=== PATIENT | male | born 1985 | race Caucasian/White ===

== ENCOUNTER 2019-06-10 07:58 | Inpatient (IN) | payer MEDICAID ==
[~2019-06-10] VITALS: Ht 177.8 cm; Wt 96.7 kg
[2019-06-10] VITALS (14 sets, daily range): BP systolic 106–131; BP diastolic 60–93; Ht 177.8 cm; Wt 96.7 kg
[2019-06-10] MEDS ORDERED: PAXIL20 MG PO (08:03)
[2019-06-10] MEDS ORDERED: OMEPRAZOLE20 M1 PO (08:36)
[2019-06-10] MEDS ORDERED: FOLBIC RF TABL1 EACH PO (08:37)
[2019-06-10] MEDS ORDERED: BACLOFEN10 MG PO (08:37)
[2019-06-10] MEDS ORDERED: FOLIC ACID1 MG PO (08:37)
[2019-06-10] MEDS ORDERED: ZOFRAN4 MG PO (08:38)
[2019-06-10] MEDS ORDERED: VISTARIL25 MG PO (08:39)
[2019-06-10] MEDS ORDERED: CATAPRES0.1 MG PO (08:39)
[2019-06-10 08:40] LABS: BASOPHILS 0.1 % (0-2); EOSINOPHILS 0.1 % (0-7); HEMATOCRIT 37.9 % (42.0-54.0); HEMOGLOBIN 13.7 g/dL (13.5-17.5); IMMATURE GRANULOCYTES 0.4 % (0-5); LYMPHOCYTES 9.7 % (15-50); MCH 26.9 pg (26.0-34.0); MCHC 36.1 g/dL (31.0-37.0); MCV 74.3 fL (80.0-100.0); MEAN PLATELET VOLUME 9.6 fL (7.4-10.4); MONOCYTES 6.1 % (2-11); NEUTROPHILS 83.6 % (40-80); RDW 14.7 % (11.5-14.5); WBC 16.4 10x3/uL (4.8-10.8)
[2019-06-10] MEDS ORDERED: LIBRIUM25 MG PO (08:41)
[2019-06-10 08:43] LABS: PLATELET COUNT 297 10x3/uL (130-400)
[2019-06-10 08:53] LABS: ALBUMIN 3.8 g/dL (3.4-5.0); BILIRUBIN - TOTAL 0.69 mg/dL (0.2-1.3); CALCIUM 7.4 mg/dL (8.5-10.1); CARBON DIOXIDE 30.6 mmol/L (21.0-32.0); CREATININE - SERUM 1.3 mg/dL (0.6-1.3); POTASSIUM - SERUM 3.6 mmol/L (3.5-5.1); PROTEIN - SERUM 7.8 g/dL (6.4-8.2)
[2019-06-10 08:56] LABS: MAGNESIUM - SERUM 1.2 mg/dL (1.8-2.4)
[2019-06-10 09:01] LABS: APPEARANCE CLEAR (CLEAR); BILIRUBIN NEGATIVE (NEGATIVE); COLOR YELLOW (YELLOW); GLUCOSE NEGATIVE (NEGATIVE); KETONE NEGATIVE (NEGATIVE); NITRITE NEGATIVE (NEGATIVE); PROTEIN NEGATIVE (NEGATIVE); SPECIFIC GRAVITY 1.015 (1.005-1.020); UROBILINOGEN NORMAL (NORMAL)
[2019-06-10 09:08] LABS: UDS - AMPHET NEGATIVE QUAL (NEGATIVE); UDS - BARB NEGATIVE QUAL (NEGATIVE); UDS - BENZO POSITIVE QUAL (NEGATIVE); UDS - COCAINE NEGATIVE QUAL (NEGATIVE); UDS - OPIATE NEGATIVE QUAL (NEGATIVE); UDS - PCP NEGATIVE QUAL (NEGATIVE); UDS - THC NEGATIVE QUAL (NEGATIVE)
--- NOTE | 2019-06-10 09:45 | NUR ---
PT ARRIVED IN THE UNIT. PT A&O X4. PT SOMEWHAT DROWSEY. PT HOOKED TO MONITORS. SINUSTACH NOTED. ON RA. IV NOTED TO LEFT FA SL. PT NOTED TO HAVE A VERY STEADY GAIT. NO TREMORS NOTED AT THIS TIME. WHENEVER TRYING TO OBTAIN HISTORY, PT KEPT NODDING OFF AND START SNORING. WHENEVER HE WOKE UP "THAT ATIVAN THEY GAVE ME IN THE ER IS STARTING TO REALLY WORK. I HAVNT BEEN TO SLEEP IN OVER 2 DAYS." PT REQUEST WATER AND IT WAS PROVIDED. NO DYSPAGIA NOTED. CALL LIGHT IN REACH. WILL CONT POC.
--- NOTE | 2019-06-10 10:46 | NUR ---
PT C/O RESTLESSNESS AND NAUSEA. PRN ATIVAN AND ZOFRAN GIVEN.
--- NOTE | 2019-06-10 12:18 | NUR ---
PT RESTING WITH HIS EYES CLOSED. VSS. NO TREMORS NOTED. PT WOKEN EASILY. PO MEDS GIVEN. LUNCH TRAY PROVIDED FOR THE PT. CALL LIGHT IN REACH. WILL CONT POC.
--- NOTE | 2019-06-10 13:00 | NUR ---
PATIENT IS RESTING. NO NEEDS AT THIS TIME. NO DISTRESS NOTED. BED LOW AND LOCKED. CALL LIGHT WITHIN REACH. WILL CONTINUE TO MONITOR.
--- NOTE | 2019-06-10 15:11 | NUR ---
PATIENT ALERTS UPON VOICE. GIVEN A GLASS OF WATER. BLANKET PROVIDED. NO OTHER NEEDS. VSS. WILL CONTINUE TO MONITOR. CALL LIGHT WITHIN REACH.
--- NOTE | 2019-06-10 17:14 | NUR ---
PATIENT ALERT AND DRINKING CHICK BROTH. PATIENT COMPLAINS OF THROAT PAIN. FEELS LIKE MUCOUS IS STUCK IN THE BACK OF HIS THROAT. SUCTION PROVIDED AT BEDSIDE. ENCOURAGED TO COUGH. WILL CONTINUE TO MONITOR.
--- NOTE | 2019-06-10 19:00 | NUR ---
PT SLEEPING WITHOUT DISTRESS, WILL CONT TO MONITOR
--- NOTE | 2019-06-10 21:00 | NUR ---
PT AWAKE, C/O SOMETHING IN THROAT, EXAMINED, HAS SWOLLEN UVULA R/T SNORING WHILE LAYING ON BACK, INSTRUCTED TO TRY SLEEPING ON SIDE TO AVOID SNORING
--- NOTE | 2019-06-10 23:00 | NUR ---
RESTING QUIETLY, LAYING ON LEFT SIDE
[2019-06-11] VITALS (12 sets, daily range): BP systolic 101–123; BP diastolic 57–78
--- NOTE | 2019-06-11 01:00 | NUR ---
AROUSES EASILY, NO C/O @ THIS TIME, VITALS STABLE
--- NOTE | 2019-06-11 03:00 | NUR ---
PT SLEEPING, AROUSES EASILY, VITALS STABLE, NO C/O
[2019-06-11 04:16] LABS: BASOPHILS 0.3 % (0-2); EOSINOPHILS 0.5 % (0-7); HEMATOCRIT 37.4 % (42.0-54.0); HEMOGLOBIN 12.3 g/dL (13.5-17.5); IMMATURE GRANULOCYTES 0.3 % (0-5); LYMPHOCYTES 20.1 % (15-50); MCH 24.9 pg (26.0-34.0); MCHC 32.9 g/dL (31.0-37.0); MCV 75.9 fL (80.0-100.0); MEAN PLATELET VOLUME 9.9 fL (7.4-10.4); MONOCYTES 6.3 % (2-11); NEUTROPHILS 72.5 % (40-80); PLATELET COUNT 234 10x3/uL (130-400); RBC 4.93 10x6/uL (4.20-6.10); RDW 14.9 % (11.5-14.5); WBC 7.9 10x3/uL (4.8-10.8)
--- NOTE | 2019-06-11 04:25 | NUR ---
PT SLEEPING ON LEFT SIDE, IV PULLED OUT WHILE SLEEPING, CATH INTACT
[2019-06-11 04:30] LABS: ALBUMIN 3.1 g/dL (3.4-5.0); ANION GAP 10.5 mmol/L (8-16); BILIRUBIN - TOTAL 0.99 mg/dL (0.2-1.3); CALCIUM 7.3 mg/dL (8.5-10.1); CREATININE - SERUM 1.3 mg/dL (0.6-1.3); POTASSIUM - SERUM 3.5 mmol/L (3.5-5.1); PROTEIN - SERUM 6.7 g/dL (6.4-8.2)
--- NOTE | 2019-06-11 05:54 | NUR ---
AROUSES EASILY, NO CHANGES NOTED, VITALS STABLE
--- NOTE | 2019-06-11 07:00 | NUR ---
PT REPORT RECEIVED FROM DIE STORAGE CLERK NURSE. PT RESTING IN BED. VSS. WILL CONTINUE TO MONITOR
--- NOTE | 2019-06-11 09:00 | NUR ---
PT IN BED RESTING. VSS. WILL CONTINUE TO MONITOR
--- NOTE | 2019-06-11 11:00 | NUR ---
patient resting. no distress noted. vss. no changes. call light within reach. bed low and locked.
--- NOTE | 2019-06-11 13:21 | NUR ---
patient sleeping. no distress noted. denies needs at this time. will continue to monitor. vss.
--- NOTE | 2019-06-11 14:19 | MORECARE ---
CASE MANAGEMENT DISCHARGE SUMMARY PATIENT: ABRAHAM ANTHONY UNIT: [id number] ADM DATE: 06/10/19 AGE: 33 : 81 SEX: M ROOM/BED: D.2301 AUTHOR: CLA JONES PHYSICIAN: REFERRING PHYSICIAN: TIFFANIE BONNER MD DATE OF SERVICE: 06/11/19 Discharge Plan Patient Name: ABRAHAM ANTHONY [facility] [facility] 1985 Planned Disposition: Rehab Fac/Unit w Plan Readm Anticipated Discharge Date: Discharge Date: Expected LOS: Initial Reviewer: [email or web address] Initial Review Date: 06/10/2019 Generated: 06/11/19 3:19 pm DCPIA - Discharge Planning Initial Assessment Updated by [email or web address]: Salome Aquino on 06/11/19 2:16 pm * Is the patient Alert and Oriented? Yes * Preadmission Environment Other * Other Environment Alcohol treatment facility * Facility Name [facility] * ADLs Independent * List name and contact numbers for known caregivers / representatives who currently or will assist patient after discharge: [facility] [phone] * Verbal permission to speak to the caregivers and representatives has been obtained from the patient. Yes * Additional services required to return to the preadmission environment? No * Can the patient safely return to the preadmission environment? Yes * Has this patient been hospitalized within the prior 30 days at any hospital? No Patient Name: ABRAHAM ANTHONY Page 42873 at 1419 All edits/amendments must be made on the electronic document DICTATION DATE: 06/11/19 1419 AUTO BODY REPAIR TECHNICIAN: XI 06/11/19 1419 RPT#: [id number] DC DATE: STATUS: ADM IN [facility] [address] [place] [address] END OF REPORT
--- NOTE | 2019-06-11 14:38 | MORECARE ---
CASE MANAGEMENT DISCHARGE SUMMARY PATIENT: ABRAHAM ANTHONY UNIT: [id number] ADM DATE: 06/10/19 AGE: 33 : 81 SEX: M ROOM/BED: D.2301 AUTHOR: CAL JONES PHYSICIAN: REFERRING PHYSICIAN: TIFFANIE BONNER MD DATE OF SERVICE: 06/11/19 Discharge Plan Patient Name: ABRAHAM ANTHONY Facility: [facility]:[place] : 1985 Planned Disposition: Rehab Fac/Unit w Plan Readm Anticipated Discharge Date: Discharge Date: Expected LOS: Initial Reviewer: [email or web address] Initial Review Date: 06/10/2019 Generated: 06/11/19 3:37 pm Comments DCP- Discharge Planning Updated by [email or web address]: Salome Aquino on 06/11/19 1:[address] Patient Name: ABRAHAM ANTHONY Admission Status: ER Accout number: [id number] Admission Date: 06-10-2019 : 1985 Admission Diagnosis: Attending: HA, Current LOS: 1 Anticipated DC Date: Planned Disposition: Rehab Fac/Unit w Plan Readm Primary Insurance: MEDICAID [place] PENDING Discharge Planning Comments: CM met with patient at bedside after explaining CM role and obtaining verbal consent. Patient lives at his home where he is independent with his care. Patient had admitted himself into [facility] for Alcohol Rehab prior to admission and plans to return there for treatment upon discharge. Patient feels this would be a safe discharge. Patient denies any discharge needs at this time. CM will continue to follow and assist as needed with discharge planning / needs. Belt Tender: Salome Aquino DCPIA - Discharge Planning Initial Assessment Updated by [email or web address]: Salome Aquino on 06/11/19 2:16 pm * Is the patient Alert and Oriented? Yes * Preadmission Environment Other * Other Environment Alcohol treatment facility * Facility Name [facility] * ADLs Independent * List name and contact numbers for known caregivers / representatives who currently or will assist patient after discharge: VALENTIN ANTHONY- [facility]- [phone] * Verbal permission to speak to the caregivers and representatives has been obtained from the patient. Yes * Additional services required to return to the preadmission environment? No * Can the patient safely return to the preadmission environment? Yes * Has this patient been hospitalized within the prior 30 days at any hospital? No Last DP export: 06/11/19 1:19 p Patient Name: ABRAHAM ANTHONY Page [id number] at 1438 All edits/amendments must be made on the electronic document DICTATION DATE: 06/11/191436 ONLINE BANKING SPECIALIST: XI 06/11/191436 RPT#: [id number] DC DATE: STATUS: ADM IN [facility] [address] [place] [address] END OF REPORT
--- NOTE | 2019-06-11 15:00 | NUR ---
PT RESTING IN BED. NO COMPLAINTS AT THIS TIME. CURRENTLY AWAITING BANANA BAG FROM PHARMACY
--- NOTE | 2019-06-11 17:05 | NUR ---
PT AWAITING TRANSFER. STILL WAITING ON BANANA BAG FROM PHARMACY. WILL CONTINUE TO MONITOR. VSS
--- NOTE | 2019-06-11 17:19 | NUR ---
SELWYN QUIJANO HUNG. BAG SAYS TO RUN FLUID IN AT 1000MLS/HR HOWEVER PHARMACY WAS CALLED AND INSTRUCTED TO RUN AT 125MLS/HR.
[2019-06-12] VITALS: BP 104/42
[2019-06-12 04:00] VITALS: BP 105/63
--- NOTE | 2019-06-12 07:32 | NUR ---
PT SLEEPING UPON ENTERING, AWOKE WHILE IN ROOM. ALERT AND ORIENTED X3, HAS IV TO LEFT FOREARM. DENIES ANY NEEDS AT THIS TIME. WILL CTM.
--- NOTE | 2019-06-12 09:18 | NUR ---
ADMINISTERED MEDICATION AT THIS TIME, NO TROUBLE SWALLOWING. VITALS ASSESSED, ALL STABLE. DENIES OTHER NEEDS. LEFT PT SITTING UP RIGHT IN BED EATING BREAKFAST. WILL CTM.
--- NOTE | 2019-06-12 11:04 | MORECARE ---
CASE MANAGEMENT DISCHARGE SUMMARY PATIENT: ABRAHAM ANTHONY UNIT: [id number] ADM DATE: 06/10/19 AGE: 33 : 81 SEX: M ROOM/BED: D.1212 AUTHOR: CAL JONES PHYSICIAN: REFERRING PHYSICIAN: TIFFANIE BONNER MD DATE OF SERVICE: 06/12/19 Discharge Plan Patient Name: ABRAHAM ANTHONY Facility: [facility]:[place] : 1985 Planned Disposition: Rehab Fac/Unit w Plan Readm Anticipated Discharge Date: 06/12/19 Discharge Date: Expected LOS: 2 Initial Reviewer: [email or web address] Initial Review Date: 06/10/2019 Generated: 06/12/19 12:04 pm Comments DCP- Discharge Planning Updated by [email or web address]: Salome Aquino on 06/11/19 1:[address] Patient Name: ABRAHAM ANTHONY Admission Status: ER Accout number: [id number] Admission Date: 06-10-2019 : 1985 Admission Diagnosis: Attending: HA, Current LOS: 1 Anticipated DC Date: Planned Disposition: Rehab Fac/Unit w Plan Readm Primary Insurance: MEDICAID [place] PENDING Discharge Planning Comments: CM met with patient at bedside after explaining CM role and obtaining verbal consent. Patient lives at his home where he is independent with his care. Patient had admitted himself into [facility] for Alcohol Rehab prior to admission and plans to return there for treatment upon discharge. Patient feels this would be a safe discharge. Patient denies any discharge needs at this time. CM will continue to follow and assist as needed with discharge planning / needs. Chemist Organic: Salome Aquino DCPIA - Discharge Planning Initial Assessment Updated by [email or web address]: Salome Aquino on 06/11/19 2:16 pm * Is the patient Alert and Oriented? Yes * Preadmission Environment Other * Other Environment [facility] treatment facility [facility] * ADLs Independent * List name and contact numbers for known caregivers / representatives who currently or will assist patient after discharge: VALENTIN ANTHONY- [facility]- [phone] * Verbal permission to speak to the caregivers and representatives has been obtained from the patient. Yes * Additional services required to return to the preadmission environment? No * Can the patient safely return to the preadmission environment? Yes * Has this patient been hospitalized within the prior 30 days at any hospital? No Last DP export: 06/11/19 1:38 p Patient Name: ABRAHAM ANTHONY Page [id number] at 1104 All edits/amendments must be made on the electronic document DICTATION DATE: 06/12/191103 MICROSOFT BI CONSULTANT: XI 06/12/19 110 RPT#: [id number] DC DATE: STATUS: ADM IN [facility] [address] [place] [address] END OF REPORT
--- NOTE | 2019-06-12 11:12 | MORECARE ---
CASE MANAGEMENT DISCHARGE SUMMARY PATIENT: ABRAHAM ANTHONY UNIT: [id number] ADM DATE: 06/10/19 AGE: 33 : 81 SEX: M ROOM/BED: D.1212 AUTHOR: CAL JONES PHYSICIAN: REFERRING PHYSICIAN: TIFFANIE BONNER MD DATE OF SERVICE: 06/12/19 Discharge Plan Patient Name: ABRAHAM ANTHONY Facility: [facility]:[place] : 1985 Planned Disposition: Rehab Fac/Unit w Plan Readm Anticipated Discharge Date: 06/12/19 Discharge Date: Expected LOS: 2 Initial Reviewer: [email or web address] Initial Review Date: 06/10/2019 Generated: 06/12/19 12:12 pm Comments DCP- Discharge Planning Updated by [email or web address]: Salome Aquino on 06/11/19 1:[address] Patient Name: ABRAHAM ANTHONY Admission Status: ER Accout number: [id number] Admission Date: 06-10-2019 : 1985 Admission Diagnosis: Attending: HA, Current LOS: 1 Anticipated DC Date: Planned Disposition: Rehab Fac/Unit w Plan Readm Primary Insurance: MEDICAID [place] PENDING Discharge Planning Comments: CM met with patient at bedside after explaining CM role and obtaining verbal consent. Patient lives at his home where he is independent with his care. Patient had admitted himself into [facility] for Alcohol Rehab prior to admission and plans to return there for treatment upon discharge. Patient feels this would be a safe discharge. Patient denies any discharge needs at this time. CM will continue to follow and assist as needed with discharge planning / needs. Email Manager: Salome Aquino DCPIA - Discharge Planning Initial Assessment Updated by [email or web address]: Salome Aquino on 06/11/19 2:16 pm * Is the patient Alert and Oriented? Yes * Preadmission Environment Other * Other Environment [facility] treatment facility * [facility] * ADLs Independent * List name and contact numbers for known caregivers / representatives who currently or will assist patient after discharge: VALENTIN ANTHONY- [facility]- [phone] * Verbal permission to speak to the caregivers and representatives has been obtained from the patient. Yes * Additional services required to return to the preadmission environment? No * Can the patient safely return to the preadmission environment? Yes * Has this patient been hospitalized within the prior 30 days at any hospital? No Last DP export: 06/11/19 1:38 p Patient Name: ABRAHAM ANTHONY Page 46977 at 1112 All edits/amendments must be made on the electronic document DICTATION DATE: 06/12/191111 INDUSTRIAL ECOLOGIST: XI 06/12/191111 RPT#: [id number] DC DATE: STATUS: ADM IN [facility] [address] [place] [address] END OF REPORT
--- NOTE | 2019-06-12 11:33 | MORECARE ---
CASE MANAGEMENT DISCHARGE SUMMARY PATIENT: ABRAHAM ANTHONY UNIT: [id number] ADM DATE: 06/10/19 AGE: 33 : 81 SEX: M ROOM/BED: D.1212 AUTHOR: CAL JONES PHYSICIAN: REFERRING PHYSICIAN: TIFFANIE BONNER MD DATE OF SERVICE: 06/12/19 Discharge Plan Patient Name: ABRAHAM ANTHONY Facility: [facility]:[place] : 1985 Planned Disposition: Rehab Fac/Unit w Plan Readm Anticipated Discharge Date: 06/12/19 Discharge Date: Expected LOS: 2 Initial Reviewer: [email or web address] Initial Review Date: 06/10/2019 Generated: 06/12/19 12:33 pm Comments DCP- Discharge Planning Updated by [email or web address]: Monique Garza on 06/12/19 10:[address] PATIENT HAS BEEN SMOKING IN HIS ROOM REPORTED BY THE NURSE. DR BONNER SPOKE WITH HIM REGARDING THIS MATTER PER THE NURSE. PLAN IS TO DISCHARGE TODAY. CM EXPLAINED TO THE NURSE. NO ADMINISTRATIVE PERSON IS AVAILABLE OVER THE WEEKEND AT [facility]. PATIENT STATED HE DID NOT KNOW HOW HE WAS GOING TO PAY FOR [facility] BUT HE IS NOTED TO HAVE MEDICAID PENDING. CM ADVISED THE NURSE. CM STATED TO PRIMARY IF PATIENT IS DISCHARGED TODAY HE WILL HAVE TO CONTACT [facility] SOON POSSIBLE. HE MAY HAVE ANOTHER CONTACT PHONE NUMBER FOR THE COUNSELOR. OTHERWISW HE IS TO CALL EARLY [facility] ON FRIDAY. CM CALLED [facility]. NO ANSWER. CM WAS ABLE TO LEAVE A VOICEMAIL MESSAGE. DCP- Discharge Planning Updated by [email or web address]: Salome Aquino on 06/11/19 1:[address] Patient Name: ABRAHAM ANTHONY Admission Status: ER Accout number: [id number] Admission Date: 06-10-2019 : 1985 Admission Diagnosis: Attending: HA, Current LOS: 1 Anticipated DC Date: Planned Disposition: Rehab Fac/Unit w Plan Readm Primary Insurance: MEDICAID [place] PENDING Discharge Planning Comments: CM met with patient at bedside after explaining CM role and obtaining verbal consent. Patient lives at his home where he is independent with his care. Patient had admitted himself into [facility] for Alcohol Rehab prior to admission and plans to return there for treatment upon discharge. Patient feels this would be a safe discharge. Patient denies any discharge needs at this time. CM will continue to follow and assist as needed with discharge planning / needs. Nuclear Fuel Processing Technician: Salome Aquino DCPIA - Discharge Planning Initial Assessment Updated by [email or web address]: Salome Aquino on 06/11/19 2:16 pm * Is the patient Alert and Oriented? Yes * Preadmission Environment Other * Other Environment Alcohol treatment facility [facility] * ADLs Independent * List name and contact numbers for known caregivers / representatives who currently or will assist patient after discharge: VALENTIN ANTHONY- [facility]- [phone] * Verbal permission to speak to the caregivers and representatives has been obtained from the patient. Yes * Additional services required to return to the preadmission environment? No * Can the patient safely return to the preadmission environment? Yes * Has this patient been hospitalized within the prior 30 days at any hospital? No Last DP export: 06/12/19 10:12 a Patient Name: ABRAHAM ANTHONY Page [phone] at 1133 All edits/amendments must be made on the electronic document DICTATION DATE: 06/12/191131 POOL LIFEGUARD: XI 06/12/191131 RPT#: [id number] ID DATE: STATUS: ADM IN [facility] [address] [place] [address] END OF REPORT
--- NOTE | 2019-06-14 11:09 | MORECARE ---
CASE MANAGEMENT DISCHARGE SUMMARY PATIENT: ABRAHAM ANTHONY UNIT: [id number] ADM DATE: 06/10/19 AGE: 33 : 81 SEX: M ROOM/BED: D.1212 AUTHOR: CAL JONES PHYSICIAN: REFERRING PHYSICIAN: TIFFANIE BONNER MD DATE OF SERVICE: 06/14/19 Discharge Plan Patient Name: ABRAHAM ANTHONY Facility: [facility]:[place] : 1985 Planned Disposition: Rehab Fac/Unit w Plan Readm Anticipated Discharge Date: 06/12/19 Discharge Date: 06/12/2019 Expected LOS: 2 Initial Reviewer: [email or web address] Initial Review Date: 06/10/2019 Generated: 06/14/19 12:09 pm Comments DCP- Discharge Planning Updated by [email or web address]: Moniquedavid Garza on 06/12/19 10:[address] PATIENT HAS BEEN SMOKING IN HIS ROOM REPORTED BY THE NURSE. DR BONNER SPOKE WITH HIM REGARDING THIS MATTER PER THE NURSE. PLAN IS TO DISCHARGE TODAY. CM EXPLAINED TO THE NURSE. NO ADMINISTRATIVE PERSON IS AVAILABLE OVER THE WEEKEND AT [facility]. PATIENT STATED HE DID NOT KNOW HOW HE WAS GOING TO PAY FOR [facility] BUT HE IS NOTED TO HAVE MEDICAID PENDING. CM ADVISED THE NURSE. CM STATED TO PRIMARY IF PATIENT IS DISCHARGED TODAY HE WILL HAVE TO CONTACT [facility] SOON POSSIBLE. HE MAY HAVE ANOTHER CONTACT PHONE NUMBER FOR THE COUNSELOR. OTHERWISW HE IS TO CALL EARLY [facility] ON FRIDAY. CM CALLED [facility]. NO ANSWER. CM WAS ABLE TO LEAVE A VOICEMAIL MESSAGE. DCP- Discharge Planning Updated by [email or web address]: Salome Aquino on 06/11/19 1:[address] Patient Name: ABRAHAM ANTHONY Admission Status: ER Accout number: [id number] Admission Date: 06-10-2019 : 1985 Admission Diagnosis: Attending: HA, Current LOS: 1 Anticipated DC Date: Planned Disposition: Rehab Fac/Unit w Plan Readm Primary Insurance: MEDICAID [place] PENDING Discharge Planning Comments: CM met with patient at bedside after explaining CM role and obtaining verbal consent. Patient lives at his home where he is independent with his care. Patient had admitted himself into [facility] for Alcohol Rehab prior to admission and plans to return there for treatment upon discharge. Patient feels this would be a safe discharge. Patient denies any discharge needs at this time. CM will continue to follow and assist as needed with discharge planning / needs. Caustic Purification Operator: Salome Aquino DCPIA - Discharge Planning Initial Assessment Updated by [email or web address]: Salome Aquino on 06/11/19 2:16 pm * Is the patient Alert and Oriented? Yes * Preadmission Environment Other * Other Environment Alcohol treatment facility * [facility] * ADLs Independent * List name and contact numbers for known caregivers / representatives who currently or will assist patient after discharge: VALENTIN ANTHONY- [facility]- [phone] * Verbal permission to speak to the caregivers and representatives has been obtained from the patient. Yes * Additional services required to return to the preadmission environment? No * Can the patient safely return to the preadmission environment? Yes * Has this patient been hospitalized within the prior 30 days at any hospital? No Last DP export: 06/12/19 10:33 a Patient Name: ABRAHAM ANTHNOY Page [phone] at 1109 All edits/amendments must be made on the electronic document DICTATION DATE: 06/14/191108 PAVING BLOCK CUTTER: XI 06/14/191108 RPT#: [id number] DC DATE:06/12/19 STATUS: DIS IN [facility] [address] [place] [address] END OF REPORT
== END 2019-06-12 11:00 | disposition home or self-care (01) | DRG 897 ==
LOC: D.ER 07:58 → D.ICU 09:03 → D.M3 06-11 20:00
PROVIDERS: Family Medicine; ADMIT Family Medicine; ATTEND Family Medicine
DX: F10.231 Alcohol dependence with withdrawal delirium (principal); F32.9 Major depressive disorder, single episode, unspecified; F17.210 Nicotine dependence, cigarettes, uncomplicated

== ENCOUNTER 2019-08-01 05:30 | Emergency (ER) | payer MEDICAID ==
[~2019-08-01] VITALS: Ht 177.8 cm; Wt 86.4 kg
[~2019-08-01 05:30] MED LIST: BACLOFEN10 MG PO; CATAPRES0.1 MG PO; FOLBIC RF TABL1 EACH PO; FOLIC ACID1 MG PO; LIBRIUM25 MG PO; OMEPRAZOLE20 M1 PO; PAXIL20 MG PO; VISTARIL25 MG PO; ZOFRAN4 MG PO
[2019-08-01 05:32] VITALS: Ht 177.8 cm; Wt 86.4 kg
[2019-08-01 06:01] LABS: APPEARANCE CLEAR (CLEAR); BILIRUBIN NEGATIVE (NEGATIVE); COLOR YELLOW (YELLOW); GLUCOSE NEGATIVE (NEGATIVE); KETONE NEGATIVE (NEGATIVE); NITRITE NEGATIVE (NEGATIVE); PROTEIN NEGATIVE (NEGATIVE); UROBILINOGEN NORMAL (NORMAL)
[2019-08-01 06:04] LABS: BASOPHILS 0.6 % (0-2); EOSINOPHILS 0.9 % (0-7); HEMATOCRIT 39.5 % (42.0-54.0); HEMOGLOBIN 13.3 g/dL (13.5-17.5); IMMATURE GRANULOCYTES 3.7 % (0-5); LYMPHOCYTES 39.1 % (15-50); MCH 26.1 pg (26.0-34.0); MCHC 33.7 g/dL (31.0-37.0); MCV 77.5 fL (80.0-100.0); MONOCYTES 13.3 % (2-11); NEUTROPHILS 42.4 % (40-80); WBC 5.4 10x3/uL (4.8-10.8)
[2019-08-01 06:06] LABS: PLATELET COUNT 366 10x3/uL (130-400)
[2019-08-01 06:35] LABS: ALBUMIN 3.5 g/dL (3.4-5.0); ALKALINE PHOSPHATASE 81 U/L (46-116); ALT (SGPT) 76 U/L (10-68); BILIRUBIN - TOTAL 0.25 mg/dL (0.2-1.3); CALC OSMOLALITY 287 mosm/kg (275-300); CALCIUM 8.4 mg/dL (8.5-10.1); CARBON DIOXIDE 25.7 mmol/L (21.0-32.0); CHLORIDE - SERUM 107 mmol/L (98-107); GLUCOSE 115 mg/dL (74-106); POTASSIUM - SERUM 3.7 mmol/L (3.5-5.1); PROTEIN - SERUM 7.7 g/dL (6.4-8.2); SODIUM 145 mmol/L (136-145); UREA NITROGEN 7 mg/dL (7-18); eGFR NON AFRICAN AMERICAN 90 mL/min (90-120)
[2019-08-01 06:39] LABS: AMYLASE - SERUM 55 U/L (25-115); LIPASE 109 U/L (73-393)
[2019-08-01 06:42] LABS: TROPONIN-I < 0.017 ng/mL (0.000-0.060)
[2019-08-01] MEDS ORDERED: ZOFRAN ODT4 MG/UDTAB PO (08:48)
[2019-08-01] MEDS ORDERED: ATIVAN1 MG PO (08:48)
[2019-08-01 08:54] VITALS: BP 118/70
== END 2019-08-01 08:55 | disposition home or self-care (01) ==
LOC: D.ER 05:30
PROVIDERS: Family Medicine
DX: R10.9 Unspecified abdominal pain (principal); F10.929 Alcohol use, unspecified with intoxication, unspecified; F32.9 Major depressive disorder, single episode, unspecified; F17.210 Nicotine dependence, cigarettes, uncomplicated